=== PATIENT | male | born 1995 | race Caucasian/White ===

== ENCOUNTER 2024-08-21 09:00 | Outpatient (CLI) | payer OTHER, SELFPAY | END 2024-08-21 09:01 | disposition home or self-care (01) | LOC: CSHSLEEP 09:00 | PROVIDERS: ATTEND Family Medicine | DX: G47.9 Sleep disorder, unspecified (principal); R53.83 Other fatigue; F32.A Depression, unspecified; R06.83 Snoring; G47.33 Obstructive sleep apnea (adult) (pediatric) | CPT/HCPCS: 95800 ==

== ENCOUNTER 2024-10-28 08:57 | Outpatient (CLI) | payer OTHER | END 2024-10-28 08:58 | disposition home or self-care (01) | LOC: CSHSLEEP 08:57 | PROVIDERS: ATTEND Family Medicine | DX: G47.9 Sleep disorder, unspecified (principal); R53.83 Other fatigue; F32.A Depression, unspecified; R06.83 Snoring; G47.33 Obstructive sleep apnea (adult) (pediatric) | CPT/HCPCS: 95811 ==